=== PATIENT | male | born 1965 ===

== ENCOUNTER 2019-06-28 19:45 | Emergency (ER) | payer BC ==
--- NOTE | 2019-06-28 23:33 | ED ---
Upper Extremity Pain - HPI Summary HPI Summary: Patient complains of pain radiating through right upper arm to right shoulder status post blood draw at 1630 today. Patient concerned about what clot. Denies prior history of blood clots, CP, SOB, any other pain, injury or symptoms. Medical history is GERD. Also complains of possible insect bite to right forearm. No known tick exposure. - History of Current Complaint Chief Complaint: EDExtremityUpper Stated Complaint: RT ARM PAIN POST BLOOD-DRAW PER PT Time Seen by Provider: 06/28/19 23:20 Hx Obtained From: Patient Mechanism Of Injury: Other Onset/Duration: Started Hours Ago Timing: Constant Severity Initially: Moderate Severity Currently: Moderate Pain Location: Arm Character: Dull, Aching Aggravating Factor(s): Movement Alleviating Factor(s): Nothing Associated Signs & Symptoms: Positive: Bruising - Allergies/Home Medications Allergies/Adverse Reactions: Allergies Allergy/AdvReac Type Severity Reaction Status Date / Time No Known Allergies Allergy Verified 03/04/13 17:34 PMH/Surg Hx/FS Hx/Imm Hx Endocrine/Hematology History: Denies: Hx Anticoagulant Therapy Cardiovascular History: Denies: Hx Pacemaker/ICD History: Denies: Hx Dialysis Musculoskeletal History: Reports: Hx Scoliosis Sensory History: Denies: Hx Eye Prosthesis Opthamlomology History: Denies: Hx Legally Blind EENT History: Denies: Hx Deafness Neurological History: Denies: Hx Dementia Infectious Disease History: No Infectious Disease History: Denies: Traveled Outside the [place] in Last 30 Days - Family History Known Family History: Positive: Non-Contributory - Social History Alcohol Use: None Substance Use Type: Reports: Cocaine Smoking Status (MU): Never Smoked Tobacco Review of Systems Constitutional: Negative Eyes: Negative ENT: Negative Cardiovascular: Negative Respiratory: Negative Gastrointestinal: Negative Genitourinary: Negative Musculoskeletal: Negative Skin: Other Neurological: Negative Psychological: Normal All Other Systems Reviewed And Are Negative: Yes Physical Exam - Summary Physical Exam Summary: Mild bruising to right AC, no pain with palpation of right arm. Full range of motion at right wrist right elbow and right shoulder. Triage Information Reviewed: Yes Vital Signs On Initial Exam: Initial Vitals Temp Pulse Resp BP Pulse Ox 98 F 78 18 137/97 98 06/28/19 19:55 06/28/19 19:55 06/28/19 19:55 06/28/19 19:55 06/28/19 19:55 Vital Signs Reviewed: Yes Appearance: Positive: Well-Appearing Skin: Positive: Warm Head/Face: Positive: Normal Head/Face Inspection Eyes: Positive: Normal Neck: Positive: Supple Respiratory/Lung Sounds: Positive: Clear to Auscultation Cardiovascular: Positive: Normal Abdomen Description: Positive: Nontender Musculoskeletal: Positive: Normal Neurological: Positive: Normal Psychiatric: Positive: Normal AVPU Assessment: Alert - [place] Coma Scale Best Eye Response: 4 - Spontaneous Best Motor Response: 6 - Obeys Commands Best Verbal Response: 5 - Oriented Coma Scale Total: 15 Procedures - Sedation Patient Received Moderate/Deep Sedation with Procedure: No Diagnostics - Vital Signs Vital Signs Temp Pulse Resp BP Pulse Ox 06/28/19 19:55 98 F 78 18 137/97 98 - Laboratory Lab Statement: Any lab studies that have been ordered have been reviewed, and results considered in the medical decision making process. Course/Dx - Course Course Of Treatment: Patient complains of pain radiating through right upper arm to right shoulder status post blood draw at 1630 today. Patient concerned about what clot. Denies prior history of blood clots, CP, SOB, any other pain, injury or symptoms. Medical history is GERD. Vital signs within normal limits. Ultrasound of right upper extremity negative for DVT. - Diagnoses Provider Diagnoses: Arm pain, right, Insect bite Discharge ED - Sign-Out/Discharge Documenting (check all that apply): Patient Departure - Discharge Plan Condition: Stable Disposition: HOME Patient Education Materials: Insect Bite or Sting (ED), Arm Pain (ED) Referrals: Owen Bales MD [Primary Care Provider] - Additional Instructions: Take ibuprofen or Tylenol for pain. Follow-up with primary care. Return to the ED for any new or worsening symptoms. - Billing Disposition and Condition Condition: STABLE Disposition: Home
[2019-06-28] MEDS ORDERED: DOXYcycline CAP(*) 100 MG PO ONE (23:48)
[2019-06-29 00:21] VITALS: BP 122/88
== END 2019-06-29 00:19 | disposition home or self-care (01) ==
LOC: ED 19:45
DX: M79.621 Pain in right upper arm (principal); S50.861A Insect bite (nonvenomous) of right forearm, initial encounter; W57.XXXA Bitten or stung by nonvenomous insect and other nonvenomous arthropods, initial encounter; Y92.9 Unspecified place or not applicable
CPT/HCPCS: 99282; A9270-GY